=== PATIENT | male | born 1965 | race Hispanic/Latino ===

== ENCOUNTER 2024-08-08 19:25 | Emergency (ER) | payer OTHER ==
[~2024-08-08] VITALS: Ht 167.6 cm; Wt 101.6 kg
[2024-08-08] MEDS ORDERED: EZETIMIBE10 MG PO (19:48)
[2024-08-08] MEDS ORDERED: ICOSAPENT ETHYL1 GM PO (19:48)
[2024-08-08] MEDS ORDERED: LOSARTAN POTASS50 MG PO (19:48)
[2024-08-08] MEDS ORDERED: TRULICITY0.75 MG/0. SUB-Q (19:49)
[2024-08-08] MEDS ORDERED: TERBINAFINE HC250 MG PO (19:49)
[2024-08-08] MEDS ORDERED: TADALAFIL20 M1 PO (19:50)
[2024-08-08] MEDS ORDERED: METFORMIN HCL500 M1 PO (19:51)
[2024-08-08] MEDS ORDERED: VENTOLIN HFA18 GM INH (19:51)
[2024-08-08] MEDS ORDERED: PIOGLITAZONE HC15 MG PO (19:51)
[2024-08-08 20:14] LABS: BASOPHILS 0.5 % (0-2); EOSINOPHILS 3.7 % (0-6); HEMOGLOBIN 15.3 g/dL (12.0-18.0); MCH 31.7 (27-36); MCHC 34.7 g/dl (30-36); MCV 91.3 fl (81-99); MONOCYTES 7.6 % (0-12); NEUTROPHILS 56.2 % (39-80); PLATELET COUNT 168 K/uL (140-440); RBC 4.82 M/ul (4.3-5.7); RDW 12.6 (10.5-15.0)
[2024-08-08] MEDS ORDERED: DIPHTH,PERTUSS(ACELL),TET VAC 0.5 ML SYRINGE IM ONE (20:30)
[2024-08-08 20:34] LABS: ALBUMIN 3.5 g/dL (3.4-5.0); ALBUMIN/GLOBULIN RATIO 0.95 (1.1-2.4); BILIRUBIN, TOTAL 0.4 ng/dL (0.2-1.0); BUN/CREATININE RATIO 20.9 (6.0-28.6); CREATININE, SERUM 1.1 mg/dL (0.70-1.30); MAGNESIUM 1.9 mg/dL (1.8-2.4); PROTEIN, TOTAL 7.2 g/dL (6.4-8.2)
[2024-08-08] MEDS ORDERED: CEPHALEXIN500 M1 PO (21:58)
[2024-08-08 23:19] VITALS: BP 138/85
--- NOTE | 2024-08-09 22:18 | EKG ---
[facility] [address] [facility] [place] [address] Signed Normal sinus rhythm Cannot rule out Inferior infarct , age undetermined Abnormal ECG No previous ECGs available Confirmed by Cedric Silver MD () on 08/09/2024 10:18:33 PM Electronically Signed By: CEDRIC SILVER MD 08/09/24 2218 PATIENT NAME: FRANCOISE DODSON Electrocardiogram DATE OF : 61 PHYSICIAN: CEDRIC SILVER MD REPORT #: [id number] REPORT IS CONFIDENTIAL AND NOT TO BE RELEASED WITHOUT AUTHORIZATION
== END 2024-08-08 23:20 | disposition home or self-care (01) ==
LOC: ED 19:25
PROVIDERS: Family Medicine
DX: R55 Syncope and collapse (principal); S61.241A Puncture wound with foreign body of left index finger without damage to nail, initial encounter; E11.9 Type 2 diabetes mellitus without complications; E78.00 Pure hypercholesterolemia, unspecified; Z79.85 Long-term (current) use of injectable non-insulin antidiabetic drugs; Z79.84 Long term (current) use of oral hypoglycemic drugs; Z79.899 Other long term (current) drug therapy; W45.8XXA Other foreign body or object entering through skin, initial encounter
CPT/HCPCS: 36415; 80053; 83735; 84484; 85025; 90471; 90715; 93005; 93010; 99284-25